=== PATIENT | male | born 1955 | race Caucasian/White ===

== ENCOUNTER 2023-07-08 19:43 | Emergency (ER) | payer OTHER, MEDICAID ==
[~2023-07-08] VITALS: Ht 167.6 cm; Wt 90.7 kg
[2023-07-08 19:47] VITALS: BP_SYST 156; PULSE 92; RESP 17; TEMP 97.8; O2SAT 100
[2023-07-09 00:03] LABS: BASOPHILS % (AUTO) 0.5 % (0.0-2.0); EOSINOPHILS # (AUTO) 0.1 K/uL (0.0-0.4); EOSINOPHILS % (AUTO) 1.8 % (0.0-4.0); HEMATOCRIT 41.5 % (36-54); HEMOGLOBIN 13.4 g/dL (14.0-18.0); LYMPHOCYTES % (AUTO) 16.2 % (20.5-51.5); MEAN CORPUSCULAR HEMOGLOBIN 28 pg (27-31); MEAN CORPUSCULAR HGB CONC 32 % (32-36); MEAN CORPUSCULAR VOLUME 86 fL (79.0-98.0); MONOCYTES # (AUTO) 0.7 K/uL (0.0-1.0); MONOCYTES % (AUTO) 11.4 % (1.7-9.3); NEUTROPHILS # (AUTO) 4.1 K/uL (1.8-7.7); NEUTROPHILS % (AUTO) 70.1 % (40.0-70.0); PLATELET COUNT (AUTO) 129 K/uL (130-430); RED BLOOD CELL COUNT(AUTO) 4.83 MIL/uL (4.2-6.2); RED CELL DISTRIBUTION WIDTH 15.2 % (9.0-15.0); WHITE BLOOD COUNT (AUTO) 5.9 K/uL (4.8-10.8)
[2023-07-09 00:30] LABS: ALBUMIN 3.8 g/dL (3.4-4.8); BILIRUBIN,DIRECT 0.1 mg/dL (0.0-0.3); CALCIUM 9.8 mg/dL (8.4-11.0); FREE T4 (FREE THYROXINE) 1.4 ng/dL (0.6-1.6); POTASSIUM 3.7 mmol/L (3.5-5.1); THYROID STIMULATING HORMONE 5.28 uIu/mL (0.34-4.82); TOTAL BILIRUBIN 0.6 mg/dL (0.0-1.0); TOTAL PROTEIN, SERUM 8.1 g/dL (6.4-8.3)
[2023-07-09 00:44] LABS: CREATININE 8.44 mg/dL (0.55-1.30)
[2023-07-09] MEDS ORDERED: AMPICILLIN SODIUM/SULBACTAM NA 3 GM in NS 100 ML IV ONE (01:45)
[2023-07-09] MEDS ORDERED: AMPICILLIN SODIUM/SULBACTAM NA 3 GM VIAL ONE (02:09)
[2023-07-09] MEDS ORDERED: DEXAMETHASONE SOD PHOSPHATE 10 MG/ML VIAL IVP ONE (03:00)
[2023-07-09 05:55] VITALS: BP_SYST 136; PULSE 86; RESP 14; TEMP 97.1; O2SAT 96
== END 2023-07-09 05:55 | disposition short-term general hospital (02) ==
LOC: SED 19:43
DX: J39.0 Retropharyngeal and parapharyngeal abscess (principal); J05.10 Acute epiglottitis without obstruction; I12.0 Hypertensive chronic kidney disease with stage 5 chronic kidney disease or end stage renal disease; N18.6 End stage renal disease; Z79.899 Other long term (current) drug therapy
CPT/HCPCS: 99291; 70490; 80076; 80048; 84439; 84443; 85025; 87040; 36415; 71250; 76376; 83605; 96365; 96375; J0295; J1100